=== PATIENT | male | born 1960 | race Caucasian/White ===

== ENCOUNTER 2017-10-06 17:55 | Emergency (ER) | payer OTHER ==
[~2017-10-06] VITALS: Ht 172.7 cm; Wt 65.8 kg
[2017-10-06 18:03] VITALS: BP 148/106
[2017-10-06] MEDS ORDERED: ACETAMINOPHEN ES 500 MG TABLET ONE (18:54)
[2017-10-06] MEDS ORDERED: ACETAMINOPHEN 325 MG TABLET PO ONE (19:00)
== END 2017-10-06 19:02 | disposition home or self-care (01) ==
LOC: ER 18:00
DX: S80.02XA Contusion of left knee, initial encounter (principal); M79.631 Pain in right forearm; I10 Essential (primary) hypertension; F17.200 Nicotine dependence, unspecified, uncomplicated; Z88.8 Allergy status to other drugs, medicaments and biological substances; W18.09XA Striking against other object with subsequent fall, initial encounter; Y93.89 Activity, other specified; Y92.89 Other specified places as the place of occurrence of the external cause; Y99.8 Other external cause status
CPT/HCPCS: 99283; A4606; Z7610

== ENCOUNTER 2017-10-14 00:23 | Emergency (ER) | payer OTHER ==
[~2017-10-14] VITALS: Ht 175.3 cm; Wt 65.8 kg
--- NOTE | 2017-10-14 00:25 | NUR ---
57 YO MALE [address], PT C/O LLQ ABD PAIN WITH DIARRHEA X 4 DAYS. PATIENT ASSISTED TO ER BED, SKIN WARM AND DRY, RESP EVEN AND UNLABORED. PATIENT GOWNED,PAL[employer]. AWAITING ORDERS FROM PROVIDER, WILL CONTINUE TO MONITOR
[2017-10-14] MEDS ORDERED: ONDANSETRON HCL/PF 4 MG/2 ML VIAL ONE (00:57)
[2017-10-14] MEDS ORDERED: KETOROLAC TROMETHAMINE 15 MG/ML VIAL ONE (00:57)
[2017-10-14] MEDS: ONDANSETRON HCL/PF 4 MG/2 ML VIAL IVP ONE (01:45)
[2017-10-14] MEDS: KETOROLAC TROMETHAMINE INJ 30 MG/ML VIAL IV ONE (01:45)
[2017-10-14] MEDS: IV NS 0.9% 1,000 ML BAG IV ONE (01:45)
--- NOTE | 2017-10-14 01:48 | NUR ---
20G HEAD IV STARTED, BLOOD SAMLPE OBTAINED AND SENT TO LAB. MEDICATED PT ORDERED
[2017-10-14 01:49] LABS: BASOPHILS % (AUTO) 0.4 % (0.0-2.0); EOSINOPHILS # (AUTO) 0.6 /CMM (0.0-0.7); EOSINOPHILS % (AUTO) 7.2 % (0.0-6.0); HEMATOCRIT 50 % (39-51); HEMOGLOBIN 16.8 g/dL (13.5-17.5); LYMPHOCYTES # (AUTO) 1.6 /CMM (0.8-4.8); LYMPHOCYTES % (AUTO) 18.2 % (20.0-44.0); MEAN CORPUSCULAR HEMOGLOBIN 29 PG (26.0-33.0); MEAN CORPUSCULAR HGB CONC 34 g/dl (31.0-36.0); MEAN CORPUSCULAR VOLUME 88 fL (80-96); MONOCYTES # (AUTO) 0.7 /CMM (0.1-1.30); MONOCYTES % (AUTO) 8.6 % (2.0-12.0); NEUTROPHILS # (AUTO) 5.7 /CMM (1.8-8.9); NEUTROPHILS % (AUTO) 65.6 % (43.0-81.0); PLATELET COUNT (AUTO) 236 /CMM (150-450); RDW COEFFICIENT OF VARIATION 15.8 (11.5-15.0); WHITE BLOOD COUNT (AUTO) 8.6 K/uL (4.3-11.0)
[2017-10-14 02:02] LABS: INR 0.93 (0.87-1.13); PROTHROMBIN TIME 9.7 SECS (9.5-12.7)
[2017-10-14 02:03] LABS: CALCIUM, SERUM 8.7 mg/dL (8.5-10.1); CREATININE 0.7 mg/dL (0.6-1.3); POTASSIUM 4.8 mmol/L (3.5-5.1)
[2017-10-14 02:17] LABS: ALBUMIN 3.7 g/dL (3.4-5.0); BILIRUBIN,TOTAL 0.5 mg/dL (0.2-1.0); TOTAL PROTEIN, SERUM 7.7 g/dL (6.4-8.2)
[2017-10-14 02:42] VITALS: BP 140/78
--- NOTE | 2017-10-14 02:42 | NUR ---
Patient discharged to home in stable condition. Written and verbal after care instructions given. Patient verbalizes understanding of instruction.IV removed. Catheter intact and site benign. Pressure and 4x4 applied to site. No bleeding noted. PT ambulatory with a steady gait VITAL SIGNS WITHIN NORMAL LIMITS.
== END 2017-10-14 02:43 | disposition home or self-care (01) ==
LOC: ER 00:23
DX: R10.84 Generalized abdominal pain (principal); R19.7 Diarrhea, unspecified; I10 Essential (primary) hypertension; Z88.8 Allergy status to other drugs, medicaments and biological substances; F17.200 Nicotine dependence, unspecified, uncomplicated
CPT/HCPCS: 36415; 71045; 74176; 80048; 80076; 83690; 85025; 85730; 96361; 96374; 96375; 99285; A4606; J1885; J2405; Z7610

== ENCOUNTER 2018-05-16 03:37 | Emergency (ER) | payer OTHER ==
[~2018-05-16] VITALS: Ht 170.2 cm; Wt 64.4 kg
--- NOTE | 2018-05-16 03:41 | NUR ---
pt [id number] c/o midsternal cp w/ lt sided neck pain, sob, chronic back pain x today. pt afebrile, tachycardic, tachypneic, hyperventilating, appears anxious, admits to meth use x yesterday & smoking cigarrettes everyday. pt placed on continuous pulse-ox w/ cardiac monitoring. Dr. Velasquez at bedside further eval
--- NOTE | 2018-05-16 04:13 | NUR ---
CXR at bedside. [employer] called for breathing tx. pt requesting tylenol for headache. Dr. Velasquez notified.
[2018-05-16] MEDS ORDERED: ACETAMINOPHEN ES 500 MG TABLET ONE (04:14)
--- NOTE | 2018-05-16 04:20 | NUR ---
pt medicated as ordered for headache.
[2018-05-16] MEDS ORDERED: ALBUTEROL FS 2.5 MG/0.5 ML VIAL.NEB ONE (04:21)
--- NOTE | 2018-05-16 04:29 | NUR ---
[employer] at bedside for breathing tx.
[2018-05-16] MEDS ORDERED: ALBUTEROL FS 2.5 MG/0.5 ML VIAL.NEB NEB ONE (04:30)
[2018-05-16] MEDS ORDERED: ACETAMINOPHEN 325 MG TABLET PO ONE (04:30)
--- NOTE | 2018-05-16 05:01 | NUR ---
pt resting comfortably in bed w/ resp even & unlabored, easily arousable. Patient discharged to home in stable condition. Written and verbal after care instructions given. Patient verbalizes understanding of instruction.
[2018-05-16 05:03] VITALS: BP 154/88
== END 2018-05-16 05:04 | disposition home or self-care (01) ==
LOC: ER 03:39
DX: J98.01 Acute bronchospasm (principal); I10 Essential (primary) hypertension; F17.200 Nicotine dependence, unspecified, uncomplicated; Z88.6 Allergy status to analgesic agent; Z60.2 Problems related to living alone
CPT/HCPCS: 71045; 94640; 99283; A4606; Z7610

== ENCOUNTER 2018-07-03 20:26 | Emergency (ER) | payer OTHER ==
[~2018-07-03] VITALS: Ht 172.7 cm; Wt 61.2 kg
[2018-07-03 20:58] LABS: HEMATOCRIT 44 % (39-51); MEAN CORPUSCULAR HGB CONC 32 g/dl (31.0-36.0); MEAN CORPUSCULAR VOLUME 84 fL (80-96); RDW COEFFICIENT OF VARIATION 16.4 (11.5-15.0); RED BLOOD CELL COUNT(AUTO) 5.26 MIL/uL (4.5-6.0); WHITE BLOOD COUNT (AUTO) 6.9 K/uL (4.3-11.0)
[2018-07-03 20:59] LABS: BASOPHILS # (AUTO) 0.1 /CMM (0.0-0.2); EOSINOPHILS % (AUTO) 1.9 % (0.0-6.0); LYMPHOCYTES # (AUTO) 1.2 /CMM (0.8-4.8); LYMPHOCYTES % (AUTO) 17.9 % (20.0-44.0); MONOCYTES # (AUTO) 0.6 /CMM (0.1-1.30); MONOCYTES % (AUTO) 8.7 % (2.0-12.0); NEUTROPHILS # (AUTO) 4.9 /CMM (1.8-8.9); NEUTROPHILS % (AUTO) 69.5 % (43.0-81.0); PLATELET COUNT (AUTO) 220 /CMM (150-450)
[2018-07-03] MEDS ORDERED: IV NS 0.9% 1,000 ML BAG IV ONE (21:00)
[2018-07-03] MEDS ORDERED: LORAZEPAM INJ 2 MG/ML VIAL IV ONE (21:00)
[2018-07-03] MEDS ORDERED: ASPIRIN 325 MG TABLET PO ONE (21:00)
[2018-07-03 21:07] LABS: CALCIUM, SERUM 8.6 mg/dL (8.5-10.1); CREATININE 0.8 mg/dL (0.6-1.3); POTASSIUM 4.1 mmol/L (3.5-5.1)
[2018-07-03 21:15] LABS: TROPONIN I 0.034 ng/mL (0.00-0.056)
[2018-07-03] MEDS ORDERED: ASPIRIN 325 MG TABLET ONE (21:31)
[2018-07-03] MEDS ORDERED: LORAZEPAM INJ 2 MG/ML VIAL ONE (21:32)
--- NOTE | 2018-07-03 21:48 | NUR ---
BB SELF C/O CP X1 DAY ACROSS WHOLE CHEST. PT STS " I WOKE UP THIS MORNING & STARTED HYPERVENTILATING ". DENIES CP, SOB, DIZZINESS, N/V, ARM/JAW PAIN @ THIS TIME. PT REFUSED ASA & IV ERMD AWARE. " WHAT AM I GOING TO DO WITH THAT, IM HAVING A HARD TIME PEEING ", DR. SWARTZ AWARE.
[2018-07-03] MEDS ORDERED: TAMSULOSIN 0.4 MG CAP.SR.24H ONE (21:55)
--- NOTE | 2018-07-03 21:57 | NUR ---
MEDICATED WITH 0.4MG OF FLOMAX PO, PT ROME WELL.
[2018-07-03] MEDS ORDERED: LORAZEPAM INJ 2 MG/ML VIAL IM ONE (22:00)
[2018-07-03] MEDS ORDERED: TAMSULOSIN 0.4 MG CAP.SR.24H PO ONE (22:00)
[2018-07-03 22:36] VITALS: BP 130/71
== END 2018-07-03 22:36 | disposition home or self-care (01) ==
LOC: ER 20:28
DX: R06.02 Shortness of breath (principal); F15.10 Other stimulant abuse, uncomplicated; F41.9 Anxiety disorder, unspecified; I10 Essential (primary) hypertension; N40.0 Benign prostatic hyperplasia without lower urinary tract symptoms; F17.200 Nicotine dependence, unspecified, uncomplicated; Z86.73 Personal history of transient ischemic attack (TIA), and cerebral infarction without residual deficits; Z86.19 Personal history of other infectious and parasitic diseases; Z88.5 Allergy status to narcotic agent; Z60.2 Problems related to living alone
CPT/HCPCS: 36415; 71045; 80048; 84484; 85025; 93005; 96372; 99285; A4606; J2060; Z7610; J7030